=== PATIENT | female | born 1960 | race Caucasian/White ===

== ENCOUNTER 2017-09-08 17:22 | Emergency (ER) | payer OTHER ==
[~2017-09-08] VITALS: Ht 162.6 cm; Wt 76.2 kg
[~2017-09-08 17:22] MED LIST: ALPRAZOLAM0.25 M1 PO; AMOXICILLIN500 M2 PO; CELEBREX200 M1 PO; CELECOXIB200 M1 PO; CYCLOBENZAPRINE10 M1 PO; DILAUDID2 M1 PO; ELIQUIS5 M1 PO; ENDOCET 325 MG-1 TA1 PO; FLEXERIL10 MG PO; GABAPENTIN100 M2 PO; HYCET 7.5 MG-3473 ML PO; HYDROCORTISO28.35 GM EXT; HYDROXYZINE HCL50 M1 PO; LEVOTHYROXINE0.15 M1 PO; LEVOTHYROXINE100 MC1 PO; LIDOCAINE HCL V15 ML PO; LIDODERM1 EACH EXT; LIDODERM1 EACH TOP; MEDROL DOSEPAK1 PAC PO; MEDROL4 M2 PO; OMEPRAZOLE20 M2 PO; PANTOPRAZOLE SO20 M1 PO; PERCOCET 325 MG1 TA2 PO; PERCOCET 5-3251 EACH PO; PERCOCET 7.5-31 EACH PO; PREDNISONE10 MG PO; PREDNISONE20 M1 PO; PROTONIX40 M3 PO; SIMVASTATIN40 MG PO; TAMOXIFEN CITRA20 M1 PO; TESSALON PERLE100 MG PO; VALTREX1000 MG PO; VALTREX500 M1 PO; VISTARIL25 MG PO; ZITHROMAX Z-PA250 M1 PO; ZOFRAN8 M1 PO
[2017-09-08 18:08] LABS: ABSOLUTE BASOPHIL COUNT 0.1 /CUMM (0.0-0.2); ABSOLUTE EOSINOPHIL COUNT 0.2 /CUMM (0.0-0.7); ABSOLUTE GRANULOCYTE CT 5.8 /CUMM (1.4-6.5); ABSOLUTE LYMPH COUNT 2.6 /CUMM (1.2-3.4); ABSOLUTE MONOCYTE COUNT 0.8 /CUMM (0.10-0.60); BASOPHIL % 0.5 % (0.0-2.0); EOSINOPHIL % 1.9 % (0-5); GRANULOCYTE % 61.2 % (42.2-75.2); HEMATOCRIT 35.8 % (37-47); MEAN CORPUSCULAR HGB 24.7 PG (27.0-31.0); MEAN CORPUSCULAR HGB CONC 32.5 G/DL (33.0-37.0); MEAN CORPUSCULAR VOLUME 75.9 FL (81.0-99.0); MEAN PLATELET VOLUME 8.5 FL (7.4-10.4); PLATELET COUNT 309 /CUMM (130-400); RED BLOOD CELL CT 4.71 /CUMM (4.20-5.40); WHITE BLOOD CELL COUNT 9.4 /CUMM (4.8-10.8)
--- NOTE | 2017-09-08 19:52 | ED GI/GU/ABDOMINAL COMPLAINT ---
History of Present Illness General Chief Complaint: Abdominal Pain/Flank Pain Stated Complaint: LUMP ON ABD Source: patient Exam Limitations: no limitations Vital Signs & Intake/Output Vital Signs & Intake/Output Vital Signs Date Time Temp Pulse Resp B/P B/P Pulse O2 O2 Flow FiO2 Mean Ox Delivery Rate 09/08 2052 97.9 84 16 136/81 98 Room Air 09/08 1737 98.0 90 18 139/89 97 Room Air Allergies Coded Allergies: NSAIDS (Non-Steroidal Anti-Inflamma (HIVES 03/29/17) codeine (THROAT SWELLS BUT CAN STILL BREATHE 03/29/17) Uncoded Allergies: tape/gauze (blisters/hives 05/20/17) Reconcile Medications Alprazolam 0.25 MG TABLET 1 TAB PO TID ANXIETY (Reported) Apixaban (Eliquis) 5 MG TABLET 1 TAB PO SEE ADMIN CRITERIA PULMONARY EMBOLISM Please see criteria below Hydrocortisone 0.5 % CREAM..G. 1 JOEY EXT BID RASH Use around the surgical incision sites twice a day. Levothyroxine Sodium 100 MCG TABLET 1 TAB PO DAILY AC THYROID (Reported) Lidocaine (Lidoderm) 5 % ADH..PATCH 1 PAT TOP DAILY PAIN (Reported) may wear up to 12 hours Oxycodone HCl/Acetaminophen (Percocet 5-325 MG Tablet) 5 MG-325 MG TABLET 1-2 TAB PO BID pain Oxycodone HCl/Acetaminophen (Percocet 7.5-325 MG Tablet) 7.5 MG-325 MG TABLET 1-2 TAB PO Q4-6 PRN PRN pain control tylenol ok alternatively but do not combine with percocet Triage Note: 57F WITH MULTIPLE COMPLAINTS STATES RECENT ABD SURGERIES AND DEVELOPMENT OF DVT'S. WOKE UP THIS MORNING AND NOTICED A PROTRUDING AREA ?HERNIA TO MID/LEFT SIDED ABDOMEN. REPORTS DIZZINESS AND NAUSEA, DENIES VOMITING. EVALUATED BY OPAL ANDERSON IN TRIAGE TO DISCUSS PLAN FOR IMAGING. Triage Nurses Notes Reviewed? yes ? n Is pt currently ? No Onset: Abrupt Duration: day(s): (1), constant, continues in ED Timing: recent history Location: epigastric Radiation: no radiation Activities at Onset: none HPI: 57-year-old female comes into emergency room with complaints of abdominal pain. Patient reports that she had a recent jeffrey fundoplication this past fall of 2016 and developed pulmonary embolisms after. She felt a bulge today. Dr. Hood was her surgeon. Denies any vomiting. Denies any fever. She has been passing her bowels. Pain is sharp. pain continuous. (Kirill North) Past History Travel History Traveled to [place] past 21 day No Medical History Any Pertinent Medical History? see below for history Neurological: migraine EENT: NONE Cardiovascular: hyperlipidemia Respiratory: NONE Gastrointestinal: hiatal hernia, MESH FILTER Hepatic: NONE Renal: NONE Musculoskeletal: osteoarthritis, osteoporosis, L WRIST FX. 5TH FINGER FX AFTER DOG BITE. Psychiatric: NONE Endocrine: Grave's disease Blood Disorders: anemia Cancer(s): breast cancer, thyroid ca PRIVATE INQUIRY AGENT/Reproductive: NONE History of MRSA: No History of VRE: No History of CDIFF: No Tetanus Vaccine: 02/26/13 Surgical History Surgical History: LEFT LUMPECTOMY JEFFREY FUNDOPLICATION X 2 Psychosocial History Who do you live with Family What is your primary language Maltese Tobacco Use: Never used Family History Hx Contributory? No (Kirill North) Review of Systems Review of Systems Constitutional: Reports: no symptoms. EENTM: Reports: no symptoms. Respiratory: Reports: no symptoms. Cardiovascular: Reports: no symptoms. GI: Reports: see HPI. Genitourinary: Reports: no symptoms. Musculoskeletal: Reports: no symptoms. Skin: Reports: no symptoms. Neurological/Psychological: Reports: no symptoms. Hematologic/Endocrine: Reports: no symptoms. Immunologic/Allergic: Reports: no symptoms. All Other Systems: Reviewed and Negative (Kirill North) Physical Exam Physical Exam General Appearance: well developed/nourished, alert, awake, mild distress Head: atraumatic, normal appearance Eyes: Bilateral: normal appearance. Ears, Nose, Throat, Mouth: hearing grossly normal, moist mucous membrane Neck: normal inspection Respiratory: no respiratory distress Gastrointestinal: soft, probable hernia over incision site, feels reducible, no erythema, no firmness Back: normal inspection Extremities: normal range of motion Neurologic/Psych: awake, alert, oriented x 3, normal gait, normal mood/affect Skin: intact, normal color Core Measures ACS in differential dx? No Sepsis Present: No Sepsis Focused Exam Completed? No (Kirill North) Progress Differential Diagnosis: hernia, incarcerated hernia, strangulate in hernia, pancreatitis, Plan of Care: Orders Procedure Date/time Status URINALYSIS 09/08 1736 Complete LACTIC ACID 09/08 1736 Complete COMPREHENSIVE METABOLIC PANEL 09/08 1736 Complete CBC WITHOUT DIFFERENTIAL 09/08 1736 Complete Laboratory Tests 09/08/172036: Lactic Acid Cancelled 09/08/171944: CBC w Diff NO MAN DIFF REQ, RBC 4.71, MCV 75.9 L, MCH 24.7 L, MCHC 32.5 L, RDW 21.0 H, MPV 8.5, Gran % 61.2, Lymphocytes % 27.4, Monocytes % 9.0, Eosinophils % 1.9, Basophils % 0.5, Absolute Granulocytes 5.8, Absolute Lymphocytes 2.6, Absolute Monocytes 0.8 H, Absolute Eosinophils 0.2, Absolute Basophils 0.1 09/08/171751: Urine Color YEL, Urine Clarity CLEAR, Urine pH 6.0, Ur Specific [place] 1.020, Urine Protein NEG, Urine Ketones NEG, Urine Nitrite NEG, Urine Bilirubin NEG, Urine Urobilinogen 0.2, Ur Leukocyte Esterase SMALL H, Ur Microscopic SEDIMENT EXAMINED, Urine RBC 1-3, Urine WBC 1-3 H, Ur Epithelial Cells MOD H, Urine Mucus MANY H, Urine Hemoglobin SMALL H, Urine Glucose NEG 09/08/171744: Anion Gap 7, Estimated GFR > 60, BUN/Creatinine Ratio 17.8, Glucose 95, Lactic Acid 0.9, Calcium 9.3, Total Bilirubin 0.4, AST 19, ALT 24, Alkaline Phosphatase 125, Total Protein 7.5, Albumin 4.1, Globulin 3.4, Albumin/Globulin Ratio 1.2 Diagnostic Imaging: Viewed by Me: CT Scan. Discussed w/RAD: CT Scan. Radiology Impression: cPATIENT: LOIS ALCALA PRESENT AGE: 57 PATIENT ACCOUNT NO: [id number] : 56 LOCATION: [facility] ORDERING PHYSICIAN: Kirill JOSEPH SERVICE DATE: 09/08/17 EXAM TYPE : CAT - CT ABD & PELVIS W IV CONTRAST EXAMINATION: CT ABDOMEN AND PELVIS WITH CONTRAST CLINICAL INFORMATION: Abdominal pain. Palpable mass over incision site. Evaluate for incarcerated hernia. COMPARISON: CT angiogram of the chest 2016. TECHNIQUE: Multidetector volumetric imaging was performed of the abdomen and pelvis following IV administration of 95 mL of Optiray 320 intravenous contrast. Sagittal and coronal reformatted images were obtained on the technologist's workstation. DLP: 360.97 mGy-cm FINDINGS: LUNG BASES: There is minimal subsegmental atelectasis within the lingula. Lung bases are clear. No pleural or pericardial effusion. LIVER, GALLBLADDER, AND BILIARY TREE: There are a few well marginated low-density lesions throughout both lobes of the liver, the largest of which measures 2.9 cm in maximal transaxial dimension best illustrated on axial image 17 of 99 series 2. The gallbladder is unremarkable with no evidence of radiopaque gallstones, gallbladder wall thickening, or obvious pericholecystic inflammatory changes. PANCREAS: Unremarkable. SPLEEN: Unremarkable. ADRENAL GLANDS: Unremarkable. KIDNEYS AND URETERS: Kidneys demonstrate symmetric corticomedullary enhancement. No discrete renal parenchymal mass. There is however a tiny cystic lesion located within the interpolar left kidney best illustrated on axial image 61 of 96 series 602. No abnormal mass or calcification is visualized along the expected course of the right or left ureter. BLADDER: The urinary bladder is decompressed. GASTROINTESTINAL TRACT: The stomach and small bowel are normal. The appendix is not definitively visualized however there are no abnormal inflammatory changes at the base of cecum to suggest acute appendicitis. Colon is unremarkable. ABDOMINAL WALL: A small amount of omental fat herniates through an epigastric abdominal wall defect best illustrated on sagittal image 66 of 144 series 601. Mild inflammatory changes within the adjacent subcutaneous fat. The second hernia measures 2.0 cm in maximal length and the neck of the sac measures 1.3 cm in diameter. No bowel contents within the hernia sac. LYMPH NODES: Normal. VASCULAR: The abdominal aorta and inferior vena cava are unremarkable. PELVIC VISCERA: There is an anteverted uterus. No worrisome adnexal mass. OSSEOUS STRUCTURES: Unremarkable. IMPRESSION: There is a small epigastric abdominal hernia containing a small amount of the greater omentum which corresponds with the palpable finding on the patient's prior incision site. Mild inflammatory changes within the adjacent subcutaneous soft tissues suggesting the possibility of strangulation. There is no bowel within the hernia sac. DICTATED BY: Kelli LING,Macario Jimenez DATE/TIME DICTATED:09/08/172021 BIOINFORMATICS SCIENTIST:YANET DATE /TIME TRANSCRIBED:09/08/172021 CONFIDENTIAL, DO NOT COPY WITHOUT APPROPRIATE AUTHORIZATION. <Electronically signed in Other Vendor System> SIGNED BY: Macario Pereira MD 09/08/172035 Initial ED EKG: none Comments: 09/08/2017 11:13:[address] Maynard management consultant for surgery. Discussed the CT scan results with him. Hernia feels reducible on exam. Patient does not appear to be in any distress upon discharge. She has close interval follow-up in the office tomorrow. I do not feel patient requires admission at this time. Her hernia feels reducible on exam. There is no bowel seen in the abdominal wall. (Rafat JOSEPH,Kirill) Departure Departure Disposition: HOME OR SELF CARE Condition: Stable Clinical Impression Primary Impression: Incisional hernia Referrals: Gavin LING,Antonio Gustafson (PCP/Family) Additional Instructions: Take Percocet for pain. Follow-up with general surgeon tomorrow. Return if any concerns worsening symptoms. Please go over all results of today's visit with your primary care doctor. Contact your primary care doctor to let them know you were here in the emergency room. There may be nonspecific findings which may not be related to your visit today here in the emergency room but may require further evaluation and chronic monitoring by your primary care doctor. If you had a laceration today the chance of foreign body always remains. You should follow-up with your primary care doctor for recheck in 3-5 days for a wound check. If you had an x-ray done there is a chance that a fracture could have been missed on initial read and you should follow-up with your primary care doctor for repeat x-rays if symptoms persist. If your blood pressure was elevated here in the emergency room please have rechecked by [facility] primary care doctor within the next 48. If you were prescribed a narcotic here in the emergency room or any type of controlled substances you're not allowed to drive while taking this medication or operate any type of heavy machinery. Narcotics can make you feel lightheaded dizziness nausea and can cause constipation. You may need to pick remover a stool softener. Thank you for choosing [facility] emergency room. Please return to the emergency room immediately if you have any other concerns worsening of symptoms. Departure Forms: Customer Survey General Discharge Information Prescriptions: Current Visit Scripts Oxycodone HCl/Acetaminophen (Percocet 5-325 MG Tablet) 1-2 TAB PO BID #10 TAB (Kirill North) PA/ARCHIVES DIRECTOR Co-Sign Statement Statement: ED Attending supervision documentation- [] I saw and evaluated the patient. I have also reviewed all the pertinent lab results and diagnostic results. I agree with the findings and the plan of care as documented in the PA's/ARCHIVES DIRECTOR's documentation. [X] I have reviewed the ED Record and agree with the PA's/ARCHIVES DIRECTOR's documentation. [] Additions or exceptions (if any) to the PAs/ARCHIVES DIRECTOR's note and plan are summarized below: [] (Tawnya LING,Antonio Fraire)
--- NOTE | 2017-09-08 20:36 | CT SCAN REPORT ---
EXAMINATION: CT ABDOMEN AND PELVIS WITH CONTRAST CLINICAL INFORMATION: Abdominal pain. Palpable mass over incision site. Evaluate for incarcerated hernia. COMPARISON: CT angiogram of the chest 05/26/2017. TECHNIQUE: Multidetector volumetric imaging was performed of the abdomen and pelvis following IV administration of 95 mL of Optiray 320 intravenous contrast. Sagittal and coronal reformatted images were obtained on the technologist's workstation. DLP: 360.97 mGy-cm FINDINGS: LUNG BASES: There is minimal subsegmental atelectasis within the lingula. Lung bases are clear. No pleural or pericardial effusion. LIVER, GALLBLADDER, AND BILIARY TREE: There are a few well marginated low-density lesions throughout both lobes of the liver, the largest of which measures 2.9 cm in maximal transaxial dimension best illustrated on axial image 17 of 99 series 2. The gallbladder is unremarkable with no evidence of radiopaque gallstones, gallbladder wall thickening, or obvious pericholecystic inflammatory changes. PANCREAS: Unremarkable. SPLEEN: Unremarkable. ADRENAL GLANDS: Unremarkable. KIDNEYS AND URETERS: Kidneys demonstrate symmetric corticomedullary enhancement. No discrete renal parenchymal mass. There is however a tiny cystic lesion located within the interpolar left kidney best illustrated on axial image 61 of 96 series 602. No abnormal mass or calcification is visualized along the expected course of the right or left ureter. BLADDER: The urinary bladder is decompressed. GASTROINTESTINAL TRACT: The stomach and small bowel are normal. The appendix is not definitively visualized however there are no abnormal inflammatory changes at the base of cecum to suggest acute appendicitis. Colon is unremarkable. ABDOMINAL WALL: A small amount of omental fat herniates through an epigastric abdominal wall defect best illustrated on sagittal image 66 of 144 series 601. Mild inflammatory changes within the adjacent subcutaneous fat. The second hernia measures 2.0 cm in maximal length and the neck of the sac measures 1.3 cm in diameter. No bowel contents within the hernia sac. LYMPH NODES: Normal. VASCULAR: The abdominal aorta and inferior vena cava are unremarkable. PELVIC VISCERA: There is an anteverted uterus. No worrisome adnexal mass. OSSEOUS STRUCTURES: Unremarkable. IMPRESSION: There is a small epigastric abdominal hernia containing a small amount of the greater omentum which corresponds with the palpable finding on the patient's prior incision site. Mild inflammatory changes within the adjacent subcutaneous soft tissues suggesting the possibility of strangulation. There is no bowel within the hernia sac.
[2017-09-08 20:53] VITALS: BP 136/81
[2017-09-08] MEDS ORDERED: PERCOCET 5-3251 EACH PO (21:14)
== END 2017-09-08 21:23 ==
LOC: ERH 17:22
PROVIDERS: Physician Assistant Medical
DX: K43.2 Incisional hernia without obstruction or gangrene (principal)
CPT/HCPCS: 74177; 81001

== ENCOUNTER → 2018-02-05 | Day surgery (SDC) | payer OTHER ==
[~2018-02-05] VITALS: Ht 162.6 cm; Wt 76.2 kg
[~2018-02-05] MED LIST changes: +LOVENOX40 MG/0.1 SC; +PANTOPRAZOLE SO40 M1 PO; +TESSALON PERLE100 M1 PO; +VOLTAREN100 GM TOP; +ZITHROMAX250 M2 PO
--- NOTE | 2018-02-05 09:20 | Operative Report ---
Operative/Inv Procedure Report Surgery Date: 02/05/18 Name of Procedure: Open incisional hernia repair with ventral ex mesh 6 cm Pre-Operative Diagnosis: Incisional hernia ventral Post-Operative Diagnosis: Incisional hernia ventral Estimated Blood Loss: scant Surgeon/Corrections Cadet: Miguel LING,Igor Macias. Anesthesia: general endotracheal tube Monitors: None IV Fluids: Not measured Implants: Ventral ex mesh 6 cm Urine Output: Not measured Drains: No drain Specimens: None Microbiology: None Tourniquet: None Complications: None Condition: Excellent stable Operative Indication: The patient is a 56-year-old female who underwent a previous Michelle fundoplication for severe reflux disease she then had a recurrence of her Michelle and recurrent reflux she now presents with a hernia at one of the port sites. The hernia is very small 1-2 cm. The patient explains that she can't live without having this hernia repaired and that it interferes with her daily life. Patient had a pulmonary embolism with her second surgery due to poor mobilization and pain. The patient was on Eloquis blood thinner. She was seen by her document examiner who had explained that she needs to remain on the Eloquis postoperatively. I initially refused surgery twice. The patient initially refused getting a filter. Patient then agreed to a filter after I refused to perform any surgery on her. I tried talking her out of surgery several times but the patient demands to have the hernia fixed and despite explaining the increased risk of developing both a pulmonary embolism clotting and bleeding because she needs to go back on her our cordis according to her physician the day after surgery. I told the patient she will bleed after surgery and have extensive bruising after starting the Eloquis again. The patient is accepting of these risks. Today the patient presented with a cough and I explained that coughing after surgery will cause pain. I explained that she should most likely hold off on the surgery but anesthesia felt that she was cleared to undergo surgery and I gave the patient the option. Knowing that she may have increased pain after the surgery with her coughing she wants to proceed anyway. I have explained the risks and potential complications of bleeding infection recurrence of the hernia and need for removal of the mesh need for further surgery among other potential complications and the patient understands. Operative/Procedure Note Note: The patient was brought into the operating room placed on the operating table in the supine position. Patient was prepped and draped in the sterile fashion. After the top block was performed the incision was made over the left mid abdomen and brought down to the skin down the soft tissue and the hernia sac was then opened. Was 2 cm wide. Tissues were dissected away from the hernia sac. There is no visible bowel. Hemostasis was achieved throughout. A piece of mesh 6 cm was inserted into the peritoneal space and sutured to the abdominal wall 4 interrupted 0 Prolene sutures. The mesh was then closed over with 0 Prolene sutures. The fascia was injected with 0.5% Marcaine the subdermal tissue was closed with a 2-0 Vicryl suture and the skin was closed with 4-0 Monocryl Steri- Strips replacement wounds had sterile dressing on the wound. She tolerated the procedure well and was brought to recovery room in stable condition.
== END ==
LOC: STS 12-17 07:00
DX: K43.2 Incisional hernia without obstruction or gangrene (principal); Z86.711 Personal history of pulmonary embolism; Z79.01 Long term (current) use of anticoagulants; K21.9 Gastro-esophageal reflux disease without esophagitis; Z85.3 Personal history of malignant neoplasm of breast; G89.29 Other chronic pain
CPT/HCPCS: J0131; J0690; J1644; J2250; J3490